=== PATIENT | male | born 1965 | race Two or more races ===

== ENCOUNTER 2023-06-07 14:04 | Outpatient (OUT) | payer BC, SELFPAY ==
[2023-06-07 14:33] LABS: Basophils Absolute Auto 0.1 10^3/uL (0.0-0.1); Basophils Percent Auto 1.1 % (0.2-2.0); Eosinophils Absolute Auto 0.3 10^3/uL (0.0-0.7); Eosinophils Percent Auto 4.5 % (0.9-7.0); Hematocrit 45.5 % (42.0-54.0); Hemoglobin 15.7 g/dL (14.0-18.0); Immature Granulocytes Abs Auto 0.02 10^3/uL (0.00-0.03); Immature Granulocytes Pct Auto 0.3 % (0.0-0.5); Lymphocytes Absolute Auto 2.2 10^3/uL (1.2-3.8); Lymphocytes Percent Auto 28.7 % (20.5-60.0); Mean Corpuscular HGB Conc 34.5 g/dL (29.9-35.2); Mean Corpuscular Hemoglobin 30.3 pg (25.9-34.0); Mean Corpuscular Volume 87.8 fL (80.0-94.0); Mean Platelet Volume 9.4 fL (9.5-13.5); Monocytes Absolute Auto 0.5 10^3/uL (0.3-0.8); Monocytes Percent Auto 7.1 % (1.7-12.0); Neutrophils Absolute Auto 4.4 10^3/uL (1.4-6.5); Neutrophils Percent Auto 58.3 % (43.0-75.0); Platelet Count 300 10^3/uL (150-450); Red Blood Count 5.18 10^6/uL (4.70-6.10); Red Cell Distribution Width 12.5 % (11.0-15.0); White Blood Count 7.6 10^3/uL (4.0-11.0)
[2023-06-07 14:35] LABS: Estimated Average Glucose 111 mg/dL; Glycohemoglobin A1C 5.5 % (4.5-6.2)
[2023-06-07 14:54] LABS: Alanine Aminotransferase 24 U/L (16-63); Albumin Level 3.8 g/dL (3.4-5.0); Alkaline Phosphatase 99 U/L (46-116); Anion Gap 13.2; Aspartate Amino Transferase 13 U/L (15-37); BUN Creatinine Ratio 12.3; Bilirubin Total 0.7 mg/dL (0.2-1.0); Calcium 8.5 mg/dL (8.5-10.1); Carbon Dioxide 28.9 mmol/L (21.0-32.0); Chloride 101 mmol/L (98-107); Chol HDL Ratio 3.4; Cholesterol 176 mg/dL (<=200); Estimated GFR (African America >60 (>=60); Estimated GFR (Non-African Ame >60 (>=60); Globulin 3.7 g/dL; Glucose 107 mg/dL (74-106); HDL Cholesterol 52 mg/dL (40-60); LDL Cholesterol Calculated 96.6 mg/dL; Potassium 4.1 mmol/L (3.5-5.1); Sodium 139 mmol/L (136-145); Thyroid Stimulating Hormone 3.067 uIU/mL (0.358-3.740); Total Protein 7.5 g/dL (6.4-8.2); Triglycerides 137 mg/dL (<=150); VLDL CHOLESTEROL 27.4 mg/dL
[2023-06-07 15:23] LABS: Prostate Specific Antigen Scrn 0.53 ng/mL (<=4.00)
[2023-06-08 13:09] LABS: Insulin 6.2 uIU/mL (2.6-24.9)
== END 2023-06-07 14:05 | disposition home or self-care (01) ==
LOC: LAB 14:07
PROVIDERS: PCP Family Medicine; Visit Provider Family Medicine
DX: Z00.00 Encounter for general adult medical examination without abnormal findings (principal); E78.5 Hyperlipidemia, unspecified; R73.09 Other abnormal glucose; Z12.5 Encounter for screening for malignant neoplasm of prostate
CPT/HCPCS: 36415; 80053; 80061; 83036; 83525; 84436; 84443; 84481; 85025; G0103

== ENCOUNTER 2024-08-03 08:49 | Outpatient (OUT) | payer BC, SELFPAY ==
--- OUTSIDE RECORDS SUMMARY | 2024-08-03 09:09 | XMS_ITS | CCD ---
Author Organization [employer] [facility] Care Team Providers Care Pattern Repair Person Name Role Phone DR BABATUNDE LAWSON Attending Unavailable DR BABATUNDE LAWSON Consulting Unavailable DR BABATUNDE LAWSON Primary Care Unavailable DR BABATUNDE LAWSON Admitting Unavailable Problems Problem Classification Problem Date Documented Da te Episodic/Chronic Other screening for suspected conditions (not mental disorders or infectious disease) (1 source) Encounter for screening for malignant neoplasm of prostate; Translations: [ENC SCREEN MALIG NEOPLASM PROSTATE] Onset: 04-14-2022 Episodic Results Test Name Value Interpretation Reference Range Facil ity INSULINon 04-10-2022 Insulin 13.8 uIU/mL Normal 2.6-24.9 [facility] Comment on above: Performed By: #### I NSULIN #### [facility] [address] [place] [address] Dr. Edilberto Perea T4, T3U, FTI LABCORPon 04-10 Free Thyroxine Index 2.3 Normal 1.2-4.9 [facility] Comment on above: Performed By: #### T HYLC #### [facility] [address] [place] [address] Dr. Edilberto Perea T3 Uptake 30 % Normal 24-39 [facility] Comment on above: Performed By: #### T HYLC #### [facility] [address] [address] [address] Edilberto Perea T4 [Mass/Vol] 7.6 ug/dL Normal 4.5-12.0 [facility] Comment on above: Performed By: #### T HYLC #### [facility] [address] [place] [address] Dr. Edilberto Perea CBC AUTO DIFFon 04-09-2022 BASO # 0.0 103/ul Normal 0.0-0.1 [facility] Comment on above: Performed By: #### C BC #### [facility] [address] [address] [address] Edilberto Perea Basophils/100 WBC (Bld) 0.3 % Normal 0.2-2.0 [facility] Comment on above: Performed By: #### C BC #### [facility] [address] [place] [address] Dr. Edilberto Perea EO # 0.0 103/ul Normal 0.0-0.7 [facility] Comment on above: Performed By: #### C BC #### [facility] [address] [place] [address] Dr. Edilberto Perea Eosinophils/100 WBC (Bld) 0.2 % Critically low 0.9-7.0 [facility] Comment on above: Performed By: #### C BC #### [facility] [address] [place] [address] Dr. Edilebrto Perea Erythrocyte distribution width (RBC) [Ratio] 12.3 % Normal 11.0-15.0 [facility] Comment on above: Performed By: #### C BC #### [facility] [address] [place] [address] Dr. Edilberto Perea Hematocrit (Bld) [Volume fraction] 44.9 % Normal 42.0-54.0 [facility] Comment on above: Performed By: #### C BC #### [facility] [address] [place] [address] Dr. Edilberto Perea Hemoglobin (Bld) [Mass/Vol] 15.4 g/dL Normal 14.0-18.0 [facility] Comment on above: Performed By: #### C BC #### [facility] [address] [place] [address] Dr. Edilberto Perea IG # 0.04 10e3/ul Critically high 0.00-0.03 [facility] [place] Comment on above: Performed By: #### C BC #### [facility] [address] [place] [address] Dr. Edilberto Perea IG % 0.3 % Normal 0.0-0.5 [facility] Comment on above: Performed By: #### C BC #### [facility] [address] [address] [address] Edilberto Perea LYMPH # 1.6 103/ul Normal 1.2-3.8 [facility] Comment on above: Performed By: #### C BC #### [facility] [address] [place] [address] Dr. Edilberto Perea Lymphocytes/100 WBC (Bld) 12.7 % Critically low 20.5-60.0 [facility] Comment on above: Performed By: #### C BC #### [facility] [address] [place] [address] Dr. Edilberto Perea MANUAL DIFF REQ NO Normal [facility] Comment on above: Performed By: #### C BC #### [facility] [address] [place] [address] Dr. Edilberto Perea MCH (RBC) [Entitic mass] 30.3 pg Normal 25.9-34.0 [facility] Comment on above: Performed By: #### C BC #### [facility] [address] [place] [address] Dr. Edilberto Perea MCHC (RBC) [Mass/Vol] 34.3 g/dL Normal 29.9-35.2 [facility] Comment on above: Performed By: #### C BC #### [facility] [address] [place] [address] Dr. Edilberto Perea MCV (RBC) [Entitic vol] 88.2 fL Normal 80.0-94.0 [facility] Comment on above: Performed By: #### C BC #### [facility] [address] [place] [address] Dr. Edilberto Perea MONO # 0.6 103/ul Normal 0.3-0.8 [facility] Comment on above: Performed By: #### C BC #### [facility] [address] [place] [address] Dr. Edilberto Perea Monocytes/100 WBC (Bld) 5.1 % Normal 1.7-12.0 [facility] Comment on above: Performed By: #### C BC #### [facility] [address] [address] [address] Edilberto Perea NEUT # 9.9 103/ul Critically high 1.4-6.5 [facility] Comment on above: Performed By: #### C BC #### [facility] [address] [address] [address] Edilberto Perea Neutrophils/100 WBC (Bld) 81.4 % Critically high 43.0-75.0 [facility] Comment on above: Performed By: #### C BC #### [facility] [address] [address] [address] Edilberto Perea Platelet mean volume (Bld) [Entitic vol] 9.4 fL Critically low 9.5-13.5 [facility] Comment on above: Performed By: #### C BC #### [facility] [address] [address] [address] Edilberto Perea PLT 308 103/ul Normal 150-450 [facility] Comment on above: Performed By: #### C BC #### [facility] [address] [address] [address] Edilberto Perea RBC 5.09 106/ul Normal 4.70-6.10 [facility] Comment on above: Performed By: #### C BC #### [facility] [address] [address] [address] Edilberto Perea WBC 12.2 103/ul Critically high 4.0-11.0 [facility] Comment on above: Performed By: #### C BC #### [facility] [address] [address] [address] Edilberto Perea GLYCOHEMOGLOBIN A1Con 2021 ADA RECOMMENDATION SEE BELOW Normal [facility] Comment on above: Result Comment: ADA RECOMMENDED LIMIT 4.0 - 6.0 ADA THERAPEUTIC TARGET < 7.0 ACTION SUGGESTED > 7.0 Performed By: #### A 1C #### [facility] [address] [address] [address] Edilberto Perea Glucose [Mass/Vol] 114 mg/dL Normal [facility] Comment on above: Performed By: #### A 1C #### [facility] [address] [address] [address] Edilberto Perea HbA1c (Bld) [Mass fraction] 5.6 % Normal 4.5-6.2 [facility] Comment on above: Performed By: #### A 1C #### [facility] [address] [address] [address] Edilberto Perea LIPID PROFILEon 04-09-2022 CHOL-HDL RATIO NORM SEE BELOW Normal [facility] Comment on above: Result Comment: 3.3 - 4.4 LOW RISK 4.4 - 7.1 AVERAGE RISK 7.1 - 11.0 MODERATE RISK >11.0 HIGH RISK Performed By: #### U CARROLL, TSH, LIPID, CMP #### [facility] [address] [address] [address] Edilberto Perea Cholesterol [Mass/Vol] 187 mg/dL Normal <=200 [facility] Comment on above: Performed By: #### U CARROLL, TSH, LIPID, CMP #### [facility] [address] [address] [address] Edilberto Perea Cholesterol in HDL [Mass/Vol] 55 mg/dL Normal 40-60 [facility] Comment on above: Performed By: #### U CARROLL, TSH, LIPID, CMP #### [facility] [address] [address] [address] Edilberto Perea Cholesterol in LDL [Mass/Vol] 112.2 mg/dL Normal [facility] Comment on above: Performed By: #### U CARROLL, TSH, LIPID, CMP #### [facility] [address] [address] [address] Edilberto Perea Cholesterol.total/Cho lesterol in HDL [Mass ratio] 3.4 {ratio} Normal [facility] Comment on above: Performed By: #### U CARROLL, TSH, LIPID, CMP #### [facility] [address] [address] [address] Edilberto Perea HDL NORMAL > or = 60 mg/dl - LOW CARDIOVASCULAR RISK <40 mg/dl - HIGH CARDIOVASCULAR RISK Normal [facility] Comment on above: Performed By: #### U CARROLL, TSH, LIPID, CMP #### [facility] [address] [address] [address] Edilberto Perea LDL CALC NORMAL SEE BELOW Normal [facility] Comment on above: Result Comment: <100 mg/dl OPTIMAL 100 - 129 mg/dl NEAR OR ABOVE OPTIMAL 130 - 159 mg/dl BORDERLINE HIGH 160 - 189 mg/dl HIGH >190 mg/dl VERY HIGH Performed By: #### U CARROLL, TSH, LIPID, CMP #### [facility] [address] [address] [address] Edilberto Perea Triglyceride [Mass/Vol] 99 mg/dL Normal <=150 [facility] Comment on above: Performed By: #### U CARROLL, TSH, LIPID, CMP #### [facility] [address] [place] [address] Dr. Edilberto Perea VLDL CALC 19.8 mg/dL Normal [facility] Comment on above: Performed By: #### U CARROLL, TSH, LIPID, CMP #### [facility] [address] [place] [address] Dr. Edilberto Perea PROF 14(COMP METB)on 022 Albumin [Mass/Vol] 3.7 g/dL Normal 3.4-5.0 [facility] Comment on above: Performed By: #### U CARROLL, TSH, LIPID, CMP #### [facility] [address] [place] [address] Dr. Edilberto Perea Albumin/Globulin [Mass ratio] 1.0 {ratio} Normal [facility] Comment on above: Performed By: #### U CARROLL, TSH, LIPID, CMP #### [facility] [address] [place] [address] Dr. Edilberto Perea ALP [Catalytic activity/Vol] 102 U/L Normal 46-116 [facility] Comment on above: Performed By: #### U CARROLL, TSH, LIPID, CMP #### [facility] [address] [place] [address] Dr. Edilberto Perea ALT [Catalytic activity/Vol] 27 U/L Normal 16-63 [facility] Comment on above: Performed By: #### U CARROLL, TSH, LIPID, CMP #### [facility] [address] [address] [address] Edilberto Perea Anion gap [Moles/Vol] 10.3 mmol/L Normal Th e [facility] Comment on above: Performed By: #### U CARROLL, TSH, LIPID, CMP #### [facility] [address] [address] [address] Edilberto Perea AST [Catalytic activity/Vol] 11 U/L Critically low 15-37 [facility] Comment on above: Performed By: #### U CARROLL, TSH, LIPID, CMP #### [facility] [address] [address] [address] Edilberto Perea Bilirubin [Mass/Vol] 0.6 mg/dL Normal 0.2-1.0 [facility] Comment on above: Performed By: #### U CARROLL, TSH, LIPID, CMP #### [facility] [address] [address] [address] Edilberto Perea Calcium [Mass/Vol] 8.8 mg/dL Normal 8.5-10.1 [facility] Comment on above: Performed By: #### U CARROLL, TSH, LIPID, CMP #### [facility] [address] [address] [address] Edilberto Perea Chloride [Moles/Vol] 104 mmol/L Normal 98-107 [facility] Comment on above: Performed By: #### U CARROLL, TSH, LIPID, CMP #### [facility] [address] [address] [address] Edilberto Perea CO2 [Moles/Vol] 29.0 mmol/L Normal 21.0-32.0 [facility] Comment on above: Performed By: #### U CARROLL, TSH, LIPID, CMP #### [facility] [address] [address] [address] Edilberto Perea Creatinine [Mass/Vol] 1.13 mg/dL Normal 0.70-1.30 [facility] Comment on above: Performed By: #### U CARROLL, TSH, LIPID, CMP #### [facility] [address] [address] [address] Edilberto Perea EGFR-AF MAURITANIAN >60 Normal >=60 [facility] Comment on above: Performed By: #### U CARORLL, TSH, LIPID, CMP #### [facility] [address] [address] [address] Edilberto Perea EGFR-NON AF MAURITANIAN >60 Normal >=60 [facility] Comment on above: Performed By: #### U CARROLL, TSH, LIPID, CMP #### [facility] [address] [address] [address] Edilberto Perea Globulin (S) [Mass/Vol] 3.6 g/dL Normal [facility] Comment on above: Performed By: #### U CARROLL, TSH, LIPID, CMP #### [facility] [address] [address] [address] Edilberto Perea Glucose [Mass/Vol] 121 mg/dL Critically high 74-106 [facility] Comment on above: Performed By: #### U CARROLL, TSH, LIPID, CMP #### [facility] [address] [address] [address] Edilberto Perea Potassium [Moles/Vol] 4.3 mmol/L Normal 3.5-5.1 [facility] Comment on above: Performed By: #### U CARROLL, TSH, LIPID, CMP #### [facility] [address] [address] [address] Edilberto Perea Protein [Mass/Vol] 7.3 g/dL Normal 6.4-8.2 [facility] Comment on above: Performed By: #### U CARROLL, TSH, LIPID, CMP #### [facility] [address] [address] [address] Edilberto Perea Sodium [Moles/Vol] 139 mmol/L Normal 136-145 [facility] Comment on above: Performed By: #### U CARROLL, TSH, LIPID, CMP #### [facility] [address] [address] [address] Edilberto Perea Urea nitrogen [Mass/Vol] 18.0 mg/dL Normal 7.0-18.0 [facility] Comment on above: Performed By: #### U CARROLL, TSH, LIPID, CMP #### [facility] [address] [address] [address] Edilberto Perea Urea nitrogen/Creatinine [Mass ratio] 15.9 mg/mg Normal [facility] Comment on above: Performed By: #### U CARROLL, TSH, LIPID, CMP #### [facility] [address] [address] [address] Edilberto Perea TSHon 04-09-2022 TSH 1.131 uIU/mL Normal 0.358-3.740 [facility] Comment on above: Performed By: #### U CARROLL, TSH, LIPID, CMP #### [facility] [address] [address] [address] Edilberto Perea URIC ACID SERUMon 04-09-2022 Urate [Mass/Vol] 4.1 mg/dL Normal 3.5-7.2 [facility] Comment on above: Performed By: #### U CARROLL, TSH, LIPID, CMP #### [facility] [address] [address] [address] Edilberto ePrea Outside Colonoscopyon 2020 Outside Colonoscopy [id number] #1.00CD:127 Normal [facility] Lab Reportson 12-03-2020 Lab Reports [id number] #1.00CD:127 Normal [facility] Consent for Procedure/Surger yon 11-14-2020 Consent for Procedure/Surgery [id number] #1.00CD:127 Normal [facility] Pre-Certification Formon Pre-Certification Form [id number] 1#1.00CD:127 Normal [facility] Provider Letter FTon 11-14 Provider Letter [facility] [place] Babatunde Lawson, [address] [place] [address] [place] [address] Re: KENDALL GONZALES Date of : 1965 Thank you for your referral of Kendall Gonzales who was seen on consultation on November 13, 2020, for screening colonoscopy. I have enclosed my consultation note for your review. I will be happy to follow Kendall. Sincerely, Luis Cao MD General Surgery [facility] Ambulatory Clinical Summaryo n 11-13-2020 Ambulatory Clinical Summary {[id number]}CD:[id number] [facility] Patient Educationon 11-14-19 21 Patient Education Physical Medicine and Rehabilitation Exercising to Lose Weight Exercise is structured, repetitive physical activity to improve fitness and health. Getting regular exercise is important for everyone. It is especially important if you are overweight. Being overweight increases your risk of heart disease, stroke, diabetes, high blood pressure, and several types of cancer. Reducing your calorie intake and exercising can help you lose weight. Exercise is usually categorized as moderate or vigorous intensity. To lose weight, most people need to do a certain amount of moderate-intensity or vigorous-intensity exercise each week. Moderate-intensity exercise Moderate-intensity exercise is any activity that gets you moving enough to burn at least three times more energy (calories) than if you were sitting. Examples of moderate exercise include: ? Walking a mile in 15 minutes. ? Doing light yard work. ? Biking at an easy pace. Most people should get at least 150 minutes (2 hours and 30 minutes) a week of moderate-intensity exercise to maintain their body weight. Vigorous-intensity exercise Vigorous-intensity exercise is any activity that gets you moving enough to burn at least six times more calories than if you were sitting. When you exercise at this intensity, you should be working hard enough that you are not able to carry on a conversation. Examples of vigorous exercise include: ? Running. ? Playing a team sport, such as football, basketball, and soccer. ? Jumping rope. Most people should get at least 75 minutes (1 hour and 15 minutes) a week of vigorous-intensity exercise to maintain their body weight. How can exercise affect me? When you exercise enough to burn more calories than you eat, you lose weight. Exercise also reduces body fat and builds muscle. The more muscle you have, the more calories you burn. Exercise also: ? Improves mood. ? Reduces stress and tension. ? Improves your overall fitness, flexibility, and endurance. ? Increases bone strength. The amount of exercise you need to lose weight depends on: ? Your age. ? The type of exercise. ? Any health conditions you have. ? Your overall physical ability. Talk to your health care provider about how much exercise you need and what types of activities are safe for you. What actions can I take to lose weight? Nutrition ? Make changes to your diet as told by your health care provider or diet and family centered specialist (dietitian). This may include: ? Eating fewer calories. ? Eating more protein. ? Eating less unhealthy fats. ? Eating a diet that includes fresh fruits and vegetables, whole grains, low-fat dairy products, and lean protein. ? Avoiding foods with added fat, salt, and sugar. ? Drink plenty of water while you exercise to prevent dehydration or heat stroke. Activity ? Choose an activity that you enjoy and set realistic goals. Your health care provider can help you make an exercise plan that works for you. ? Exercise at a moderate or vigorous intensity most days of the week. ? The intensity of exercise may vary from person to person. You can tell how intense a workout is for you by paying attention to your breathing and heartbeat. Most people will notice their breathing and heartbeat get faster with more intense exercise. ? Do resistance training twice each week, such as: ? Push-ups. ? Sit-ups. ? Lifting weights. ? Using resistance bands. ? Getting short amounts of exercise can be just as helpful as long structured periods of exercise. If you have trouble finding time to exercise, try to include exercise in your daily routine. ? Get up, stretch, and walk around every 30 minutes throughout the day. ? Go for a walk during your lunch break. ? Park your car farther away from your destination. ? If you take public transportation, get off one stop early and walk the rest of the way. ? Make phone calls while standing up and walking around. ? Take the stairs instead of elevators or escalators. ? Wear comfortable clothes and shoes with good support. ? Do not exercise so much that you hurt yourself, feel dizzy, or get very short of breath. Where to find more information ? [place] Department of Health and Human Services: www.hhs.gov ? Centers for Disease Control and Prevention (CDC): www.cdc.gov Contact a health care provider: ? Before starting a new exercise program. ? If you have questions or concerns about your weight. ? If you have a medical problem that keeps you from exercising. Get help right away if you have any of the following while exercising: ? Injury. ? Dizziness. ? Difficulty breathing or shortness of breath that does not go away when you stop exercising. ? Chest pain. ? Rapid heartbeat. Summary ? Being overweight increases your risk of heart disease, stroke, diabetes, high blood pressure, and several types of cancer. ? Losing weight rainey (more content not included)... Normal [facility] Physician Referralon 021 Physician Referral [id number] #1.00CD:127 [facility] Encounters Encounter Date Encounter Type Care Provider Facility Start: 04-14-2022 Encounter for genera l adult medical examination without abnormal findings DR BABATUNDE LAWSON [facility] Start: 04-09-2022 End: 04-10-[address] BABATUNDE LAWSON Facility:[facility] Start: 04-09-2022 End: 04-10-2022 Encounter for general adult medical examination without abnormal findings DR BABATUNDE LAWSON Facility:[facility] Procedures Date Procedure Procedure Detail Performing Clinician Start: 04-09-[address] RACHANA LAWSON Comment on above: Performed By: #### P [facility] #### [facility] [address] [place] [address] Dr. Edilberto Perea Payers Date Payer Category Payer Unknown [id number] 1958 Unknown [id number] Clinical Note 11-13-2020 Note Date & Type Note Facility 11-13-2020 Note Chief Complaint Referral per Dr. Lawson on screening Colonoscopy HPI Staff 55 year old male referred by Dr. Lawson on consultation of Colonoscopy Screening. Denies symptoms of rectal/abdominal pain, rectal bleeding, diarrhea, and constipation. Patient has not previously had colonoscopy. Reports no family history of colon cancer. History of Present Illness 55 yo male with h/o htn, referred for colorectal screening; denies change in bms or blood in stools; no abdominal complaints; no previous colonoscopy or abdominal operations; no asa or NSAID use; no SBE prophylaxis; no fmhx of GI malignancy or IBD; no tobacco use. Review of Systems PHQ Score Initial Depression Screen Score: 0 ROS - Provider Constitutional: no fever, no sweats, no weight loss. Eyes: no glasses, no blurred vision, no visual loss. ENMT: no dentures, no hoarseness, no swallowing difficulties, no hearing loss, no ear infection(s), no nose bleeds. Cardiovascular: high blood pressure, no chest pain, regular heartbeat, no heart murmur. Respiratory: no shortness of breath, no cough, no asthma, no wheezing. Gastrointestinal: no nausea, no vomiting, no diarrhea, no constipation, no blood in stool, no change in bowel habits, no abdominal pain, no hepatitis. Genitourinary: no kidney stones, no urine infection, no dysuria. Musculoskeletal: no pain, no weakness. Skin: no changing moles, no rash, no skin lumps. Neurologic: no seizures, no epilepsy, no headache. Psychiatric: no emotional or psychiatric problem. Heme/Lymph: no bleeding problems, no anemia, no blood clots, no transfusions. Allergy/Immunologic: no swollen lymph nodes/glands, no IV drug abuse. Other: Additional ROS info: Except as noted in the above Review of Systems and in the History of Present Illness, all other systems have been reviewed and are negative or noncontributory. Physical Exam Vitals & Measurements T: 36.0 ?C (Tympanic) BP: 158/84 HT: 177.8 cm HT: 177.8 cm WT: 87.6 kg WT: 87.64 kg BMI: 27.72 HEENT: normal conjunctiva, sclera clear, no scleral icterus, EOM intact, PERRLA, oral mucosa moist without lesions. Neck: trachea midline, no mass, symmetric, no thyromegaly or nodules, no adenopathy Respiratory: lungs CTA, respirations non labored. Cardiovascular: regular rate and rhythm, no murmur, no pedal edema or varicosities. Gastrointestinal: soft, non distended, no tenderness, no masses, no palpable hernias, diastasis recti no, no hepatosplenomegaly; normal bs Lymphatic: no cervical adenopathy, no axillary adenopathy, no inguinal adenopathy. Musculoskeletal: normal gait, digits and nails without infection, nodes, cyanosis, clubbing. Skin: no rashes, no lesions, no ulcers, no subcutaneous nodules, induration. Psychiatric/Neuro: oriented to time, place, person, judgement normal, affect appropriate for age, insight intact, no focal deficits. Tests: labs reviewed, x-rays reviewed, review of old records completed, Discussed surgical options, risks, and possible complications with patient. Assessment/Plan 1. Screening for malignant neoplasm of colon (Z12.11: Encounter for screening for malignant neoplasm of colon) Plan colonoscopy under anesthesia, informed consent obtained. Follow-up No qualifying data available Problem List/Past Medical History Ongoing HTN - Hypertension Screening for malignant neoplasm of colon Historical Acute eczema Acute gastroenteritis Dyspepsia Dysphagia History of COVID-19 Memory loss Near syncope Primary impotence Seborrheic keratosis Shoulder impingement syndrome Procedure/Surgical History Left shoulder (07/19/2004). Medications amLODIPine 5 mg Tab, 5 mg= 1 tab(s), Oral, Daily Coreg 25 mg Tab, 25 mg= 1 tab(s), Oral, BID lisinopril 40 mg Tab, 40 mg= 1 tab(s), Oral, Daily Allergies No Known Allergies Social History Tobacco Never (less than 100 in lifetime) Tobacco Use:., 11/13/2020 Family History Diabetes mellitus type II: Mother. Hypertension: Mother and Father. Stroke: Father. Immunizations Vaccine Date Status SARS-CoV-2 (COVID-19) mRNA BNT-162b2 vax 10/22/2020 Recorded SARS-CoV-2 (COVID-19) mRNA BNT-162b2 vax 09/21/2020 Recorded [facility] Comment on above: Result Comment: Elec tronically Signed By: MAVERICK GAFFNEY, Luis Silvestre\Date and Time Signed: 11/13/20 15:05 EDT Summary Purpose Family History No Family History Records FoundNo Family History Records Found Advance Directives No Advanced Directives Records FoundNo Advanced Directives Records Found Additional Source Comments (unrecognized sect ion and content) No Status Records FoundNo Status Records Found INFORMATION SOURCE (unrecogn ized section and content) DATE CREATED AUTHOR 12/10/2020 [facility] DATE CREATED AUTHOR AUTHOR'S ORGANIZ ATION 04/19/2022 [facility] FOR RECORDS PERTAINING TO PATIENTS WHO ARE OR HAVE BEEN ENROLLED IN A CHEMICAL DEPENDENCY/SUBSTANCEABUSE PROGRAM, SOME INFORMATION MAY BE OMITTED. This clinical summary was aggregated from multiple sources. Caution should be exercised in using it in the provision of clinical care. This summary normalizes information from multiple sources, and as a consequence, information in this document may materially change the coding, format and clinical context of patient data. In addition, data may be omitted in some cases. CLINICAL DECISIONS SHOULD BE BASED ON THE PRIMARY CLINICAL RECORDS. [facility] provides no warranty or guarantee of the accuracy or completeness of information in this document.
[2024-08-03 09:31] LABS: Basophils Absolute Auto 0.1 10^3/uL (0.0-0.1); Basophils Percent Auto 0.8 % (0.2-2.0); Eosinophils Absolute Auto 0.4 10^3/uL (0.0-0.7); Eosinophils Percent Auto 4.5 % (0.9-7.0); Hematocrit 45.5 % (42.0-54.0); Hemoglobin 15.7 g/dL (14.0-18.0); Immature Granulocytes Abs Auto 0.01 10^3/uL (0.00-0.03); Immature Granulocytes Pct Auto 0.1 % (0.0-0.5); Lymphocytes Absolute Auto 2.6 10^3/uL (1.2-3.8); Lymphocytes Percent Auto 33.5 % (20.5-60.0); Mean Corpuscular HGB Conc 34.5 g/dL (29.9-35.2); Mean Corpuscular Hemoglobin 30.1 pg (25.9-34.0); Mean Corpuscular Volume 87.2 fL (80.0-94.0); Mean Platelet Volume 8.6 fL (9.5-13.5); Monocytes Absolute Auto 0.7 10^3/uL (0.3-0.8); Monocytes Percent Auto 8.8 % (1.7-12.0); Neutrophils Absolute Auto 4.1 10^3/uL (1.4-6.5); Neutrophils Percent Auto 52.3 % (43.0-75.0); Platelet Count 350 10^3/uL (150-450); Red Blood Count 5.22 10^6/uL (4.70-6.10); Red Cell Distribution Width 12.7 % (11.0-15.0); White Blood Count 7.8 10^3/uL (4.0-11.0)
[2024-08-03 09:38] LABS: Estimated Average Glucose 108 mg/dL; Glycohemoglobin A1C 5.4 % (4.5-6.2)
[2024-08-03 09:51] LABS: Chol HDL Ratio 3.6; Cholesterol 189 mg/dL (<=200); Free T3 2.81 pg/mL (2.18-3.98); HDL Cholesterol 53 mg/dL (40-60); LDL Cholesterol Calculated 119.4 mg/dL; Thyroid Stimulating Hormone 2.702 uIU/mL (0.358-3.740); Triglycerides 83 mg/dL (<=150); VLDL CHOLESTEROL 16.6 mg/dL
[2024-08-03 10:38] LABS: Prostate Specific Antigen Scrn 0.52 ng/mL (<=4.00)
[2024-08-04 03:07] LABS: Insulin 12.5 uIU/mL (2.6-24.9)
== END 2024-08-03 08:50 | disposition home or self-care (01) ==
LOC: LAB 08:51
PROVIDERS: PCP Family Medicine; Visit Provider Family Medicine
DX: Z00.00 Encounter for general adult medical examination without abnormal findings (principal)
CPT/HCPCS: 36415; 80061; 83036; 83525; 84436; 84443; 84481; 85025; G0103